=== PATIENT | female | born 1970 | race Two or more races ===

== ENCOUNTER 2023-01-29 21:03 | Emergency (ER) | payer BC ==
[~2023-01-29] VITALS: Ht 177.8 cm; Wt 97.0 kg
[2023-01-29 22:00] VITALS: TEMP 97.7; O2SAT 100
[2023-01-30] MEDS ORDERED: DEXAMETHASONE 1 MG/ML ORAL SYR PO ONE (00:45)
[2023-01-30] MEDS ORDERED: FAMOTIDINE 20MG TABLET PO SCH (00:45)
[2023-01-30] MEDS ORDERED: DIPHENHYDRAMINE 50MG CAPSULE PO ONE (00:45)
[2023-01-30] MEDS ORDERED: EPIN0.3P3 IM (01:08)
[2023-01-30] MEDS ORDERED: CETI-338 PO (01:08)
[2023-01-30] MEDS ORDERED: ALBU6.7H3 INH (01:08)
[2023-01-30 01:44] VITALS: BP 122/68; PULSE 88; RESP 20
== END 2023-01-30 01:45 | disposition home or self-care (01) ==
LOC: ER 21:03
DX: R06.02 Shortness of breath (principal); R42 Dizziness and giddiness; F41.9 Anxiety disorder, unspecified; Z90.710 Acquired absence of both cervix and uterus; Z98.890 Other specified postprocedural states
CPT/HCPCS: 99284; Q0163; J8540